=== PATIENT | male | born 1955 | race Caucasian/White ===

== ENCOUNTER 2018-06-01 00:35 | Outpatient (CLI) | payer MEDICAID, SELFPAY ==
--- NOTE | 2018-06-01 06:58 | DI.COMBO_ITS ---
SYMPTOMS/DIAGNOSIS: LT ROTATOR CUFF TEAR, M75.102 LEFT SHOULDER ARTHROGRAM INJECTION: Fluoroscopy Time: 4 sec Fluoroscopy was utilized by Dr. Dumont during the performance of a left shoulder arthrogram. Please see the procedure report by Dr. Dumont for complete details. CT SCAN OF THE LEFT SHOULDER: CT scan of the left shoulder was performed according to protocol following arthrogram. There is a full thickness tear of the supraspinatus tendon with contrast seen in the subacromial subdeltoid bursa. The tear appears to be anteriorly near the insertion site onto the greater tuberosity. There is a question of some retraction of the tendon to the level of the acromioclavicular joint. The infraspinatus, teres minor and subscapularis tendons appear intact as does the biceps tendon. The labrum appears grossly unremarkable on this noncontrast examination. There are degenerative changes seen at the acromioclavicular joint. No evidence of a fracture or suspicious lytic or sclerotic lesion is seen. The soft tissues appear grossly unremarkable. IMPRESSION: Full thickness tear through the anterior aspect of the supraspinatus tendon with a question of mild retraction of the tendon.
[2018-06-01] MEDS: Omnipaque 300 MG/ML 10 ML BTL IJ (11:31)
[2018-06-01] MEDS: Bupivacaine 0.5% Pres-Free 10 ML VIAL 8 ML IJ (11:32)
--- NOTE | 2018-06-01 12:54 | OPPNE_ITS ---
Date of service: 06/01/18 Time of Service: 10:52 Procedure Note Date of procedure: 06/01/18 Procedure: Left Shoulder Injection Surgeon/Proceduralist/Physician: Raheel Dumont Procedure Diagnosis: Left rotator cuff tear Procedure Indications: Maury has had persistent pain of the LEFT shoulder. His examination demonstrated significant weakness and concern for rotator cuff tearing. Noninvasive measures have been tried. To confirm the diagnosis and to demonstrate the extent of tearing, I recommended advanced imaging. Due to a pacemaker, he is unable to obtain an MRI and t herefore CT arthrogram is recommended. I had discussed the risks of the procedure and the patient elected to proceed. Procedure Description: Maury was greeted in the flouroscopy room. The correct side was identified and the consent was reviewed with the patient and signed. The patient was then placed in the supine position on the fluoroscopy table. The LEFT shoulder was then prepped with Chloraprep. The anterior injection starting point was identiifed by bony landmarks and fluoroscopy. The skin and soft tissue in the tract of the injection was anesthetized with 1% Lidocaine. A spinal needle was then inserted deep into the shoulder joint at the level of the recess between the glenoid and superior humeral head. A small amount of Omnipaque solution was injected to confirm intraarticular placement. Once confirmed, the shoulder was injected with 15 cc of a one-to-one mixture of 0.5% bupivacaine and Omnipaque. A bandaid was placed on the injection site. The patient tolerated the procedure well and was taken to the CT scanner for CT scan of the shoulder.
== END 2018-06-01 00:55 ==
PROVIDERS: PCP Family Medicine; Visit Provider Student in an Organized Health Care Education/Training Program
DX: M75.102 Unspecified rotator cuff tear or rupture of left shoulder, not specified as traumatic (principal)
CPT/HCPCS: 20610; 77002; 73200

== ENCOUNTER 2018-07-21 10:39 | Outpatient (CLI) | payer MEDICAID, SELFPAY ==
--- NOTE | 2018-07-21 21:09 | W.PREOPHP ---
Date of service: 07/21/18 Assessment and Plan (1) Left rotator cuff tear: Current visit: No Status: Chronic Left arthroscopic rotator cuff repair. Details of surgery were discussed with patient as well as risks and pertinent anatomy. All questions were answered. Qualifiers: Rotator cuff tear extent: unspecified tear extent Qualified Code(s): M75.102 - Unspecified rotator cuff tear or rupture of left shoulder, not specified as traumatic History of Present Illness Chief Complaint: Left shoulder pain Narrative: Maury is a 62-year-old male who comes in today for a preop visit for a left rotator cuff repair. He previously had an injury about 6 years ago where he fell directly on his left shoulder. He has had intermittent shoulder pain since that injury, however, he had another substantial injury in January 2018 when he was helping a friend carry sheet rock, he felt a tearing sensation in his left shoulder. Since then he has had excruciating pain in his left shoulder with any motion of the shoulder or reaching away from his body. He also has pain with reaching up overhead and it is made worse by lifting in any of those directions. He also has trouble sleeping at night because of his left shoulder pain. He has had a proven rotator cuff tear on CT arthrogram, and because it was traumatic in nature, Dr. Dumont does offer a left rotator cuff repair which the patient would like to proceed with. Pertinent Surgical Information Maury has a history of cardiomyopathy and decreased ejection fraction. This was also associated with ventricular tachycardia. Eventually that was resolved in October 2017 by implantable defibrillator placement. He recently came for preop visit for this surgery, but had not been cleared by cardiology. He since has been cleared by cardiology, they only suggest that a magnet be placed over his defibrillator with use of cautery during surgery. Cardiology note has been scanned into the system. Patient denies history of CVA, CO, angina, asthma, COPD, renal or liver disorders, hepatitis, bleeding disorders, diabetes, immune or thyroid disorders. No complications from anesthesia. Review of Systems Constitutional Denies fever(s) ENT Denies dizziness and Denies sore throat Cardiovascular Denies chest pain, Denies palpitations and Denies dyspnea Respiratory Denies cough and Denies dyspnea Gastrointestinal Denies abdominal pain, Denies melena, Denies hematochezia, Denies diarrhea, Denies nausea and Denies vomiting Genitourinary Denies hematuria and Denies dysuria Neurologic Denies dizziness Endocrine Denies palpitations PFSH Medical History Cardiomyopathy (Acute) Hx of ventricular tachycardia (Acute) Hyperlipidemia (Acute) Depression (Chronic) HTN (hypertension) (Chronic) Surgical History History of implantable cardioverter-defibrillator (ICD) placement (Acute) Social History Smoking/Tobacco Use Status: Former Tobacco Use Drug use: Never Do you feel safe at home: Yes Do you feel safe in your relationship?: Yes Meds Home Medications Medication Instructions Recorded Confirmed Type aspirin [Aspirin Low-Strength] 81 mg PO DAILY 04/10/13 07/21/18 History multivitamin 1 tab PO DAILY 04/10/13 07/21/18 History omega-3 fatty acids [Fish Oil] 1 cap PO DAILY 04/10/13 07/21/18 History atorvastatin 40 mg tablet 40 mg PO DAILY 05/10/18 07/21/18 History losartan 100 mg tablet 100 mg PO DAILY 05/10/18 07/21/18 History metoprolol succinate ER 100 mg 100 mg PO DAILY 05/10/18 07/21/18 History capsule sprinkle, ext. release 24 hr sertraline 100 mg tablet 25 mg PO DAILY 05/10/18 07/21/18 History Allergies Allergy/AdvReac Type Severity Reaction Status Date / Time No Known Allergies Allergy Unverified 05/10/18 13:37 Exam [facility] Head: normocephalic and atraumatic General nose exam: no nasal discharge Throat: uvula midline and no uvular edema Other: soft palate rises symmetrically, no erythema Eyes Conjunctivae: conjunctivae normal Sclera: sclerae normal Pupils: PERRL Resp Effort & Inspection: normal respiratory effort Auscultation: clear to auscultation bilaterally and no wheezes Cardio Rate: regular rate Rhythm: regular rhythm Heart Sounds: S1 normal, S2 normal and no murmurs Other: No murmur appreciated by me even with a vague history of a murmur diagnosed at the age of 21. GI Palpation: soft, no hepatosplenomegaly and nontender Auscultation: normal bowel sounds
== END 2018-07-21 10:59 ==
PROVIDERS: PCP Family Medicine; Visit Provider Student in an Organized Health Care Education/Training Program
DX: M75.102 Unspecified rotator cuff tear or rupture of left shoulder, not specified as traumatic (principal); Z01.818 Encounter for other preprocedural examination
CPT/HCPCS: NC

== ENCOUNTER 2018-07-27 10:28 | Day surgery (SDC) | payer MEDICAID, SELFPAY ==
[2018-07-21 11:36] VITALS: BP 125/76; PULSE 65; RESP 17; TEMP 37.1; O2SAT 97
[2018-07-27] VITALS (11 sets, daily range): BP systolic 108–142; BP diastolic 60–93; PULSE 65–83; RESP 13–18; TEMP 36.1–36.7; O2SAT 93–99
[2018-07-27] MEDS: Lactated Ringers 1,000 ML 80 ML IV ×2 (11:00→15:18)
[2018-07-27] MEDS: Bupivacaine LIPOSOME/PF 133 MG/10 ML VIAL IJ (13:09)
[2018-07-27] MEDS: Bupivacaine 0.5% Pres-Free 30 ML VIAL (13:09)
[2018-07-27] MEDS: ceFAZolin 2 GM/50 ML BAG IVPB (14:02)
--- NOTE | 2018-07-27 16:52 | PDOC.DSDIS_ITS ---
Discharge Plan Disposition Patient Disposition: HOME Condition: Good Discharge Details Reason For Visit: Left Rotator Cuff Tear Attending Provider: Raheel Dumont Primary Care Provider: Keshav Wang Home Meds and New Rx's Prescriptions: New acetaminophen 500 mg tablet 1,000 mg PO Q8H PRN (Reason: pain) Qty: 60 RF: 3 ibuprofen 600 mg tablet 600 mg PO TID PRNQty: 90 RF: 3 oxycodone 5 mg tablet 5 mg PO Q4H Qty: 15 RF: 0 Continued sertraline 100 mg tablet 25 mg PO DAILY RF: 0 atorvastatin 40 mg tablet 40 mg PO DAILY RF: 0 metoprolol succinate 100 mg cap,sprinkle,ER 24hr dose pack 100 mg PO DAILY RF: 0 losartan 100 mg tablet 100 mg PO DAILY RF: 0 multivitamin 1 EACH tablet 1 tab PO DAILY RF: 0 aspirin [Aspirin Low-Strength] 81 MG tablet,chewable 81 mg PO DAILY RF: 0 Fish Oil 500 MG capsule 1 cap PO DAILY RF: 0 Discharge Instructions Stand Alone Forms: Anes.Nerve Block Instructions, Laura Vázquez (DSU), Tim Card w/RCR Referrals: Raheel Dumont MD [ [facility] STAFF PHYSICIAN] - Equipment/Supplies: Sling Activity:: Activity as Tolerated Remove Dressings/Wound Care:: 72 hours Shower/Bathe:: 72 hours Diet:: As Tolerated Discharge Orders Discharge Orders: Discharge Order (Routine); Ordered 07/27/18 Ordered By: Raheel Dumont DS: Diagnosis Discharge Diagnosis (1) Left rotator cuff tear: Status: Chronic
--- NOTE | 2018-07-28 07:40 | ROE_ITS ---
Date of service: 07/27/18 Time of Service: 16:49 Operative Note DATE OF PROCEDURE: 07/27/18 PRE-OP DIAGNOSIS: Left rotator cuff tear PROCEDURE: - Arthroscopic Rotator Cuff Repair SURGEON: Raheel Dumont DISTRIBUTOR CLEANER: Piotr Barnett ANESTHESIA: GETA and regional ESTIMATED BLOOD LOSS: 50 PATHOLOGY: none sent COMPLICATIONS: None Patient was transported to: PACU Patient's condition: stable Indications: I have seen Maury in clinic for a painful shoulder. Pathology was confirmed based on CT arthrogram and exam findings. Nonoperative measures were exhausted but disability and pain persisted. I discussed shoulder arthroscopy and procedures. I reviewed the risks of the procedures to include, but not limited to, bleeding, infection, pain, stiffness, damage to nerves or vessels, recurrence, hardware failure, blood clot. Despite these risks, the patient elected to proceed. Findings: A diagnostic arthroscopy was performed with the following findings: - Glenohumeral Joint: Very focal grade I chondromalacia seen over the humeral head and the glenoid. There is seem to be some lamination of the superior glenoid cartilage but there is no clear defect and therefore not addressed. There was some eburnation over the greater tuberosity - Labrum: Some fraying of the superior labrum but no clear tearing. - Cuff: A chronic tear of the supra spinatus tendon with retraction medial to the glenoid. There was wear over the greater tuberosity suggestive of chronicity. There is a more recent tear of the infraspinatus tendon. There was some partial tearing of the articular side of the subscapularis tendon involving less than half of the tendon and with minimal exposed footprint. - Biceps: No inflammatory changes. No tearing. [place] intact. - Subacromial: Thickened course bursa throughout with a complex rotator cuff tear involving a retracted supraspinatus tendon and a laminated infraspinatus tear Procedure Description: Maury was greeted in the preoperative holding area where the correct side was identified and marked. The consent was reviewed with the patient and signed. The history and physical was updated. All questions were answered. Maury was taken back to the PACU for administration of an intrascalene nerve block. He was then taken to the operating room. The patient was placed into the supine position on the operating room table. A general anesthetic was administered. He was then positioned in the beach chair position. All bony prominences were well padded. The head was placed in a foam movable bulkhead installer in a neutral position. Prophylactic antibiotics in the form of cefazolin were administered. The left arm/shoulder was then prepped with Chloraprep and draped in a standard fashion with stockinette and shoulder drape. A timeout to confirm correct identity, side and site, procedure, allergies, anesthesia, and medical concerns was performed. The arm was placed into a pneumatic graves, [id number]. The shoulder arthroscopy was then performed. The glenohumeral joint was injected with 20 cc of normal saline with good flow back. A standard posterior portal was made and the joint was entered atraumatically with a blunt arthroscope. Once inside we had good visualization of the structures of the glenohumeral joint. An anterior portal was established with spinal needle localization. A 6.5 mm cannula was inserted. A probe was then used to perform a diagnostic arthroscopy. There is noted to be very focal mild grade I chondromalacia. The labrum was intact anteriorly and posteriorly with only some minor inflammatory changes and fraying. There were no loose bodies in the inferior pouch. The superior rotator cuff was completely detached from the tu berosity. The greater tuberosity showed signs of wear such that the bone of the tuberosity was eburnated. The biceps tendon was without tearing. The subscapularis had some partial tearing of the articular side for the upper 1 cm. The subscapularis was debrided back to healthy-appearing fibers. This left greater than half of the tendon still attached. There is no significant tuberosity exposed. With the anterior probe portal manipulated the subscapularis tendon in multiple positions and saw no liftoff nor signs of significant attachment for the lesser tuberosity. The biceps was also exposed in multiple positions and showed no signs of subluxation, dislocation, or tearing. These soft tissues around the subscapularis were debrided of inflammatory change. A light debridement was performed of the labrum for inflammatory changes. I probed the anchor and there is syncope some lamination of the superior glenoid cartilage but was a very small amount. By pulling of the biceps I did not change this at all so therefore the biceps was left attached. The supra spinatus tendon edge was seen medial to the glenoid just above the medial glenoid rim. Teres minor was seen attached and infraspinatus was laminated. The arthroscope was then inserted into the subacromial space. The 6.5 mm cannula was placed lateral to the CA ligament. 2 lateral portals were also established for viewing and working. A complete bursectomy is performed anteriorly, posteriorly, and laterally with electrocautery and shaver. This had excellent exposure of the rotator cuff. The greater tuberosity was worn suggesting chronic tearing of the supraspinatus. The tear pattern was very difficult to appreciate. The supra spinatus was identified medial to the glenoid. It was encased in scar tissue. I used a liberator and electrocautery to free it up from the glenoid and from the surrounding bursal tissue. It was still attached to a portion of the coracohumeral ligament which assisted in identifying the anterior leading edge. It was able to be mobilized only to the medial aspect of the footprint. I debrided down the scar tissue all the way towards the scapular spine. There was significant attachments between the posterior edge of this and a portion of the infraspinatus. The infra spinatus was seen to arise posteriorly. It easily covered the tuberosity and a much more posterior to anterior direction rather than medial to lateral. The tuberosity was debrided lightly to encourage bleeding. I then placed 3 medial row anchors. Each was a Mitek Healix 4.5 mm anchor. 4 horizontal mattress sutures were placed into the supraspinatus tendon. Again, I was able to bring that tendon over to the medial edge of the tuberosity. However, there was not any significant excess. The more posterior anchor was then used to place sutures into the infraspinatus fragment. The tendon was made sure to be pulled from posterior to anterior. All of these were tied down. This still left some i nfraspinatus which could be pulled from posterior to anterior. Due to positioning I decided to place another single 4.5 mm Healix anchor. This was placed in the anterior lateral aspect of the tuberosity. Sutures from this anchor were placed into the leading edge of the infraspinatus to bring it over the remainder of the footprint. 2 horizontal mattresses were placed in this. We now had coverage of the tuberosity and the joint space is no longer visible. His blood pressure was very labile during the case resulting in periods of mixed visualization. The subacromial space was tight but there is no impinging subacromial spur identified. Given the duration of the case and the limited visualization due to labile blood pressures, I did not perform any acromioplasty. The scope equipment was removed from the shoulder. Excess fluid was evacuated. The portal sites were closed with 3-0 Monocryl. The wounds were dressed with Steri-Strips, 4 x 4's, ABDs, Medipore tape. A sling was applied. The patient tolerated the procedure well and was returned to the PACU in a stable condition suffering no known complication.
== END 2018-07-27 19:15 | disposition home or self-care (01) ==
LOC: SUR 16:52 → MS 17:48
PROVIDERS: PCP Family Medicine; Visit Provider Student in an Organized Health Care Education/Training Program
PROC: (CPT 29827; principal; 2018-07-27 12:00)
DX: M75.122 Complete rotator cuff tear or rupture of left shoulder, not specified as traumatic (principal); M94.212 Chondromalacia, left shoulder; Z95.810 Presence of automatic (implantable) cardiac defibrillator; I42.9 Cardiomyopathy, unspecified; I10 Essential (primary) hypertension
CPT/HCPCS: 29827; 29823; 76942; J0690; J1100; J1200; J1885; J2250; J2370; J2405; J3010; L3670

== ENCOUNTER 2024-06-12 11:22 | Outpatient (CLI) | payer MEDICARE, SELFPAY ==
--- NOTE | 2024-06-12 08:45 | DI.RAD_ITS ---
Exam(s) XR SHOULDER RT COMPLETE 2+V EXAM: XR SHOULDER RT COMPLETE 2+V CLINICAL HISTORY: RIGHT SHOULDER PAIN. TECHNIQUE: 2D digital imaging was performed of the right shoulder. Two images were obtained. Grash ey and axillary views were obtained. COMPARISON: There are no priors for comparison. FINDINGS: BONES: No acute fracture is present. No bony destructive lesion is seen. JOINTS: No dislocation present. There are mild degenerative changes seen at both the acromioclavicula r and glenohumeral joints. SOFT TISSUE: Normal. IMPRESSION: Mild degenerative changes seen in the right shoulder as described. DATA REPOSITORY: RADIATION DOSE DELIVERED:
== END 2024-06-12 11:23 | disposition home or self-care (01) ==
LOC: DIORS 11:22
PROVIDERS: PCP Family Medicine; Referring Provider Family Medicine; Visit Provider Student in an Organized Health Care Education/Training Program
DX: M75.101 Unspecified rotator cuff tear or rupture of right shoulder, not specified as traumatic
CPT/HCPCS: 99203; 73030

== ENCOUNTER → 2024-08-22 09:57 | Outpatient (BNVA) | payer MEDICARE, SELFPAY | PROVIDERS: PCP Family Medicine; Referring Provider Family Medicine; Visit Provider Student in an Organized Health Care Education/Training Program | DX: M75.101 Unspecified rotator cuff tear or rupture of right shoulder, not specified as traumatic (principal) | CPT/HCPCS: 99214; 20610; J1010 ==